=== PATIENT | female | born 1960 | race Caucasian/White ===

== ENCOUNTER 2020-06-09 09:19 | Outpatient (CLI) | payer OTHER, SELFPAY ==
--- NOTE | 2020-06-09 09:15 | XR_ITS ---
WS: [id number] ABDOMEN: SUPINE FILM HISTORY: Stone COMPARISON: 06/07/2018 Normal bowel gas pattern. Right kidney: Several calcifications over the lower pole RIGHT kidney with the largest measuring 5 mm . No interval change. Left kidney: Tiny calcifications lower pole LEFT kidney. XR/XR KUB [id number] IMPRESSION: Bilateral nephrolithiasis. No significant interval change in stone burden.
== END 2020-06-09 09:20 | disposition home or self-care (01) ==
PROVIDERS: Family Provider Internal Medicine; PCP Urology; Visit Provider Nurse Practitioner Family
DX: N20.0 Calculus of kidney (principal)
CPT/HCPCS: 74018; 81001

== ENCOUNTER 2020-10-23 08:45 | Outpatient (CLI) | payer OTHER, SELFPAY ==
--- NOTE | 2020-10-23 08:51 | MM_ITS ---
WS: [id number] Bilateral screening digital mammogram, 10/23/2020 Clinical Data: SCREENING Comparison: 09/12/2019, 08/17/2018, 08/04/2017, 07/30/2016, 07/25/2015, 05/23/2014, 12/31/2011, 11/04/2009. Findings: The breast parenchymal pattern shows fibroglandular tissue No spiculated masses or clustered calcific ations are seen. There are no secondary signs of carcinoma. MM/[place] [id number] Impression: 1. Negative bilateral mammogram unchanged. 2. Recommend annual screening mammograms. BIRADS: 1-Negative FOLLOW UP: 1 Year Follow-up The CAD cloth checker was used.
== END 2020-10-23 08:46 | disposition home or self-care (01) ==
LOC: RADSHAW 08:48
PROVIDERS: Family Provider Internal Medicine; PCP Internal Medicine; Visit Provider Internal Medicine
DX: Z12.31 Encounter for screening mammogram for malignant neoplasm of breast (principal)
CPT/HCPCS: 77067

== ENCOUNTER 2021-02-05 08:01 | Outpatient (CLI) | payer OTHER, SELFPAY ==
--- NOTE | 2021-02-05 08:14 | USCV_ITS ---
Sarita Jovel Age: 60 Gender: F : 1960 Exam Date: 02/05/2021 08:36 Ordering Phys: Natasha David MD Technologist: Eliane Tesfaye [place] [facility] [place]: annual BP: / HR: 81 Rhythm: Sinus Technical Quality: Fair MEASUREMENTS (Male / Female) Normal Values 2D ECHO LV Diastolic Diameter PLAX 4.1 cm 4.2 - 5.9 / 3.9 - 5.3 cm LV Systolic Diameter PLAX 3.0 cm LV Chamber Size 3.6 cm IVS Diastolic Thickness 1.0 cm 0.6 - 1.0 / 0.6 - 0.9 cm IVS Systolic Thickness 1.6 cm LVPW Diastolic Thickness 1.0 cm 0.6 - 1.0 / 0.6 - 0.9 cm LVPW Systolic Thickness 1.1 cm RV Chamber Size 1.5 cm LVOT Diameter 2.0 cm LV Ejection Fraction 2D Teich 54.2 % LV Ejection Fraction MOD 2C 63.5 % LV Ejection Fraction 2C AL 63.7 % LA Diameter 3.0 cm LA Width 2.9 cm LA Height 4.8 cm RA Width 2.8 cm RA Height 4.0 cm Aorta at Sinotubular Diameter 2.3 cm M-MODE LV Diastolic Diameter MM 4.0 cm 4.2 - 5.9 / 3.9 - 5.3 cm LV Systolic Diameter MM 2.6 cm LV Ejection Fraction MM Teich 64.8 % IVS Diastolic Thickness MM 0.4 cm 0.6 - 1.0 / 0.6 - 0.9 cm IVS Systolic Thickness MM 0.8 cm LVPW Diastolic Thickness MM 1.0 cm 0.6 - 1.0 / 0.6 - 0.9 cm LVPW Systolic Thickness MM 1.2 cm RV Diastolic Diameter MM 1.1 cm Aortic Annulus Diameter 2.8 cm LA Ao Ratio MM 1.1 MV E Point Septal Separation 0.7 cm DOPPLER AV Peak Velocity 125.0 cm/s LVOT Peak Velocity 106.0 cm/s AV Area Cont Eq vti 2.5 cm squared AV Area Cont Eq pk 2.7 cm squared MV Area PHT 3.7 cm squared Mitral E to A Ratio 0.8 MV E' Velocity 42.0 cm/s Mitral E to MV E' Ratio 10.2 Mitral E to LV E' Lateral Ratio 10.9 Mitral E to LV E' Septal Ratio 9.7 TR Peak Velocity 191.9 cm/s TR Peak Gradient 14.7 mmHg TR Mean Velocity 157.6 cm/s TR Mean Gradient 10.1 mmHg TR Velocity Time Integral 44.6 cm TV Peak E Velocity 46.0 cm/s Right Atrial Pressure 3.0 mmHg Pulmonary Artery Systolic Pressu 17.7 mmHg PV Peak Velocity 87.0 cm/s RV Acceleration Time 0.1 s RV Ejection Time 0.3 s RV AcT/ET 0.3 FINDINGS Left Ventricle Normal left ventricular size. LV systolic function is normal with EF of 55-60%. No regional wall motion abnormalities. Grade 1 diastolic dysfunction Right Ventricle The right ventricle is normal in size and function. Right Atrium The right atrium is normal in size. Left Atrium The left atrium is normal in size. Mitral Valve Structurally normal mitral valve without significant stenosis or prolapse. There is mild mitral regurgitation. Aortic Valve Structurally normal aortic valve without significant sclerosis or stenosis. There is no aortic regurgitation. Tricuspid Valve Structurally normal tricuspid valve without significant stenosis or regurgitation. Insufficient TR jet to calculate RVSP Pulmonic Valve Structurally normal pulmonic valve without significant stenosis. There is mild pulmonic regurgitation. Pericardium Normal pericardium without effusion. Aorta Normal ascending aorta dimension. CONCLUSIONS LV systolic function is normal with EF of 55-60% Grade 1 diastolic dysfunction Mild mitral regurgitation. Mild pulmonic regurgitation No comparison studies are available Kieran Baig MD (Electronically Signed) Final Date: 05 February 2021 17:40 S
== END 2021-02-05 08:02 | disposition home or self-care (01) ==
LOC: RAD 08:06
PROVIDERS: PCP Internal Medicine; Visit Provider Internal Medicine
DX: Z00.00 Encounter for general adult medical examination without abnormal findings (principal); I34.0 Nonrheumatic mitral (valve) insufficiency; I37.1 Nonrheumatic pulmonary valve insufficiency
CPT/HCPCS: 93306

== ENCOUNTER 2021-02-12 08:54 | Outpatient (CLI) | payer OTHER, SELFPAY ==
--- NOTE | 2021-02-12 08:59 | XR_ITS ---
WS: [id number] DEXA (DUAL ENERGY X-RAY ABSORPTIOMETRY) Bone mineral density was performed using a Plug.dj machine. HISTORY: ASYMPTOMATIC POSTMENOPAUSAL STATUS COMPARISON: None available. Lumbar spine BMD (L1-L4): 1.014 g/cm2 T score: -1.4 Z score: -0.5 Total hip BMD: Left: 0.905 g/cm2. T score: -0.8 Z score: -0.1 Right: 0.867 g/cm2. T score: -1.1 Z score: -0.4 10 year probability of a major osteoporotic fracture is 10%. XR/XR DEXA axial skeleton* [id number] IMPRESSION: OSTEOPENIA based upon the WHO classification for females.
== END 2021-02-12 08:55 | disposition home or self-care (01) ==
LOC: RADWPI 08:55
PROVIDERS: PCP Internal Medicine; Visit Provider Internal Medicine
DX: Z78.0 Asymptomatic menopausal state (principal); M85.88 Other specified disorders of bone density and structure, other site
CPT/HCPCS: 77080

== ENCOUNTER 2021-03-25 06:46 | Outpatient (CLI) | payer OTHER, SELFPAY ==
--- NOTE | 2021-03-25 07:06 | MR_ITS ---
WS: [id number] MRI LUMBAR SPINE NONCONTRAST TECHNIQUE: Sagittal T1, T2 and STIR imaging. Axial T1 and T2 imaging. CLINICAL INFORMATION: DEGENERATIVE DISC DISEASE W RADICULOPATHY LUMBOSACRAL SPINE COMPARISON: MRI 2 016 FINDINGS: Mild lumbar curve. No acute compression. No high-grade central canal stenosis. L1-L2: Normal. L2-L3: No significant disc bulging. Mild facet arthropathy. Spinal canal and foramen are patent. L3-L4: No significant disc bulging. Moderate facet arthropathy. Spinal canal and foramen are patent. L4-L5: Minimal annular bulging. Moderate facet arthropathy. Spinal canal and foramen are patent. L5-S1: No significant disc bulging. Mild facet arthropathy. Spinal canal foramen are patent. Visualized pelvic bony structures: Normal. Paravertebral soft tissues: Normal. MR/MR lumbar spine wo con* [id number] IMPRESSION: 1. Mild lumbar curve. No acute compression. No high-grade central canal stenos is. 2. No significant foraminal narrowing. 3. Moderate facet arthropathy L3-L4 and L4-L5. 4. No significant interval changes since 2016.
== END 2021-03-25 06:47 | disposition home or self-care (01) ==
LOC: RADSHAW 06:52
PROVIDERS: PCP Internal Medicine; Visit Provider Internal Medicine
DX: M51.17 Intervertebral disc disorders with radiculopathy, lumbosacral region (principal); M47.816 Spondylosis without myelopathy or radiculopathy, lumbar region
CPT/HCPCS: 72148

== ENCOUNTER 2022-01-14 14:47 | Outpatient (CLI) | payer OTHER, SELFPAY ==
--- NOTE | 2022-01-14 14:52 | MM_ITS ---
WS: [id number] BILATERAL 3D TOMOSYNTHESIS DIGITAL SCREENING MAMMOGRAPHY WITH CAD CLINICAL INFORMATION: SCREENING HISTORY: Screening mammogram. No current complaints. COMPARISON: October 23, 2020 TECHNIQUE: Bilateral CC and MLO views. FINDINGS: Scattered fibroglandular densities bilaterally. Punctate and lucent centered calcifications. No suspi cious focal mass, asymmetry, calcifications, or architectural distortion. No evidence of malignancy. MM/[place] [id number] IMPRESSION: BI-RADS: 2-Benign FOLLOW UP: 1 Year Follow-up Recommend return to annual screening mammography.
== END 2022-01-14 14:48 | disposition home or self-care (01) ==
LOC: RADSHAW 14:48
PROVIDERS: PCP Internal Medicine; Visit Provider Internal Medicine
DX: Z12.31 Encounter for screening mammogram for malignant neoplasm of breast (principal)
CPT/HCPCS: 77063; 77067

== ENCOUNTER 2022-06-10 08:36 | Outpatient (CLI) | payer OTHER, SELFPAY ==
--- NOTE | 2022-06-10 08:00 | XR_ITS ---
WS: [id number] KUB, AP view, 06/10/2022 Clinical Data: CALCIUM UROLITHIASIS Comparison: KUB, 06/09/2020. Findings: No abnormal intraabdominal masses are seen. There is no dilatated small bowel or evidence of obstruct ion. There are calcifications overlying both kidneys. Fecal material and bowel gas obscures detail over mike th kidneys. The bladder is full. XR/XR KUB [id number] Impression: No change in bilateral renal calcifications.
== END 2022-06-10 08:37 | disposition home or self-care (01) ==
LOC: RAD 08:37
PROVIDERS: PCP Internal Medicine; Visit Provider Urology
DX: N20.9 Urinary calculus, unspecified (principal)
CPT/HCPCS: 74018

== ENCOUNTER 2022-12-16 11:34 | Outpatient (CLI) | payer OTHER, SELFPAY ==
--- NOTE | 2022-12-16 12:10 | CT_ITS ---
WS: [id number] CT ABDOMEN PELVIS TECHNIQUE: Contrast-enhanced CT of the abdomen and pelvis with coronal and sagittal reformatted image s. CLINICAL INFORMATION: RLQ ABDOMINAL PAIN/DIARRHEA/EVAL APPENDICITIS COMPARISON: CT 2014 DLP: 564.[address] scans at [facility] use at least one of these dose optimization techniques: automated e xposure control; mA and/or kV adjustment per patient size (includes targeted exams where dose is matc hed to clinical indication); or iterative reconstruction. FINDINGS: Normal appendix in the RIGHT lower quadrant. No evidence of acute appendicitis. Retroflexed uterus. H eterogeneous uterine enhancement with a few small enhancing lesions. These may represent small fibroi ds versus adenomyosis. This can be further evaluated with pelvic ultrasound. Small amount of free flu id in the pelvis. Sigmoid colon is decompressed. A few small sigmoid diverticuli. No evidence of acute diverticulitis. Air-fluid levels in normal caliber transverse colon. Fluid distended small bowel with air-fluid level s and prominent mucosal thickening and enhancement suspicious for small bowel enteritis. This involve s the proximal and distal small bowel loops in the midabdomen extending into the RIGHT lower quadrant and pelvis. Terminal ileum is decompressed. Small amount of enhancement involving the terminal ileum and cecum. Somewhat prominent enhancement and thickening involving the RIGHT ascending colon and hep atic flexure. Lung bases are well aerated. Diffuse fatty infiltration liver. Normal portal vein and splenic vein. M ild hepatomegaly. Normal spleen. Normal pancreatic parenchymal enhancement. Normal portal vein and sp lenic vein. Normal gallbladder. Tiny esophageal hiatal hernia. Normal stomach and proximal duodenum. Celiac and SMA are patent. Normal caliber abdominal aorta. Small cyst undersurface RIGHT hepatic lobe measuring 16 mm. Normal renal parenchymal enhancement. No hydronephrosis. Incidental small LEFT renal cysts. No hydronephrosis in either kidney. Tiny fat-containing umbilical hernia. CT/CT abdomen pelvis w con* [id number] IMPRESSION: 1. Normal appendix in the RIGHT lower quadrant. No evidence of acute appendici tis. 2. Fluid distended small bowel loops with prominent mucosal thickening and enh ancement. Also, wall thickening and enhancement RIGHT colon and hepatic flexure suspicious for enterocolitis. Findings likely infectious or inflammatory. Brandt mmend correlation with history of inflammatory bowel disease. 3. Heterogeneously enhancing retro flexed uterus with small foci of enhancemen t may represent small fibroids or adenomyosis. This can be further evaluated wi th ultrasound. 4. Small amount of free fluid in the pelvis. 5. Diffuse fatty infiltration liver. 6. No other acute findings.
[2022-12-16 12:19] LABS: Basophils # 0.1 10^3/uL (0.0-0.1); Basophils % 0.4 %; Eosinophils % 0.1 %; Hematocrit 49.2 % (37.0-47.0); Hemoglobin 16.1 g/dL (11.5-15.3); Lymphocytes # 0.9 10^3/uL (0.8-4.8); Lymphocytes % 8.3 %; Mean Corpuscular HGB Conc 32.7 g/dL (30.0-36.0); Mean Corpuscular Volume 88.5 fl (81-99); Mean Platelet Volume 10.3 fL (7.4-10.4); Monocytes # 0.7 10^3/uL (0.2-0.9); Monocytes % 6.4 %; Neutrophils # 9.41 10^3/uL (1.8-7.7); Neutrophils % 84.4 %; Nucleated Red Blood Cells % 0 %; Platelet Count 209 10^3/cmm (130-400); Red Blood Count 5.56 10^6/uL (4.1-5.3); Red Cell Distribution Width 13.7 % (12.1-15.1); White Blood Count 11.2 10^3/uL (4.0-10.0)
[2022-12-16] MEDS: iohexol 350 mg/mL 500 mL Btl (per mL) IV (14:20)
== END 2022-12-16 11:35 | disposition home or self-care (01) ==
PROVIDERS: PCP Internal Medicine; Visit Provider Internal Medicine
DX: R10.31 Right lower quadrant pain (principal); R19.7 Diarrhea, unspecified; K76.0 Fatty (change of) liver, not elsewhere classified
CPT/HCPCS: 36415; 74177; 85025; 87506; Q9967

== ENCOUNTER 2023-01-24 09:42 | Outpatient (CLI) | payer OTHER, SELFPAY ==
--- NOTE | 2023-01-24 09:50 | MM_ITS ---
WS: [id number] Bilateral screening 3D tomosynthesis digital mammogram, 01/24/2023 Clinical Data: SCREENING Comparison: 01/14/2022, 10/23/2020, 09/12/2019, 08/17/2018 08/04/2017, 07/30/2016, 07/25/2015, 05/23/2014, 12/31/2011, 11/04/2009. Findings: The breast parenchymal pattern shows fibroglandular tissue. No spiculated masses or clustered calcifi cations are seen. There are no secondary signs of carcinoma. There is a mole marker on the right [address]. Impression: 1. Negative bilateral mammogram unchanged. 2. Recommend annual screening mammograms. MM/[place] [id number] BIRADS: 1-Negative FOLLOW UP: 1 Year Follow-up The CAD food checkers and cashiers supervisor was used.
== END 2023-01-24 09:43 | disposition home or self-care (01) ==
LOC: RAD 09:46
PROVIDERS: PCP Internal Medicine; Visit Provider Internal Medicine
DX: Z12.31 Encounter for screening mammogram for malignant neoplasm of breast (principal)
CPT/HCPCS: 77063; 77067

== ENCOUNTER 2023-11-25 06:01 | Outpatient (CLI) | payer OTHER, SELFPAY ==
--- NOTE | 2023-11-25 | US_ITS ---
WS: [id number] RIGHT UPPER QUADRANT ULTRASOUND HISTORY: ELEVATED LFT'S COMPARISON: None available. Liver: 14.6 cm in length. Normal size liver. Variable echotexture throughout the liver. Simple cyst R IGHT lobe 1.6 x 1.7 x 1.3 cm. Portal Vein: Normal hepatopetal flow with monophasic waveform. Gallbladder: Normally distended gallbladder with no stones or wall thickening. CBD: 0.2 cm Pancreas: Partially obscured. Only a small portion of the body is identified and normal. Right kidney: 11.5 cm in length. Normal size and echogenicity. No hydronephrosis or mass. Aorta and IVC: Unremarkable abdominal aorta and IVC. No ascites. IMPRESSION: 1. Normal gallbladder. 2. Heterogeneous liver which is normal size. Due to the distribution in the geographic appearance of the heterogeneity this is probably all due to areas of hepatic steatosis with sparing. 3. No bile duct dilatation.
== END 2023-11-25 06:02 | disposition home or self-care (01) ==
LOC: RAD 06:01
PROVIDERS: PCP Internal Medicine; Visit Provider Internal Medicine
DX: R74.8 Abnormal levels of other serum enzymes (principal); K76.9 Liver disease, unspecified
CPT/HCPCS: 76705

== ENCOUNTER 2024-01-26 08:51 | Outpatient (CLI) | payer OTHER, SELFPAY ==
--- NOTE | 2024-01-26 08:56 | MM_ITS ---
WS: [id number] Bilateral screening 3D tomosynthesis digital mammogram, 01/26/2024 Clinical Data: SCREENING Comparison: 01/24/2023, 01/14/2022, 12/24/2019, 09/12/2019, 08/17/2018, 08/04/2017, 07/30/2016, 07/25/2015, 05/23/2014, 12/31/2011, 11/04/2009. Findings: The breast parenchymal pattern shows fibroglandular tissue no spiculated masses or clustered calcific ations are seen. There are no secondary signs of carcinoma. There is a mole marker on the right breas t. Impression: 1. Negative bilateral mammogram unchanged. 2. Recommend annual screening mammograms. MM/[place] [id number] BIRADS: 1-Negative FOLLOW UP: 1 Year Follow-up The CAD inventory checker was used.
== END 2024-01-26 08:52 | disposition home or self-care (01) ==
LOC: RAD 08:52
PROVIDERS: PCP Internal Medicine; Visit Provider Internal Medicine
DX: Z12.31 Encounter for screening mammogram for malignant neoplasm of breast (principal)
CPT/HCPCS: 77063; 77067

== ENCOUNTER 2024-04-23 13:23 | Outpatient (CLI) | payer OTHER, SELFPAY ==
--- NOTE | 2024-04-23 13:29 | XR_ITS ---
WS: [email or web address] SCREENING DEXA SCAN [employer] CLINICAL INFORMATION: ASYMPTOMATIC POSTMENOPAUSAL COMPARISON: 2020 FINDINGS: The L1-L4 bone mineral density measures 0.992 g/cm2. This corresponds to a T score score of -1.6 and Z score of -0.4. Left femoral neck bone mineral density measures 0.872 g/cm2. This corresponds to a T score of -1.1 an d Z score of -0.2. Right femoral neck bone mineral density measures 0.815 g/cm2. This corresponds to a T score -1.5of an d Z score of -0.6. Mean femoral neck bone mineral density measures 0.844 g/cm2. This corresponds to a T score of -1.3 an d Z score of -0.4. XR/XR DEXA axial skeleton* [id number] IMPRESSION: Osteopenia lumbar spine. Osteopenia femoral necks. Patient's FRAX calculated 10 year probability for major osteoporotic fracture i s 10.6% and osteoporotic hip fracture is 1.6%. Bone mineral density lumbar spine decreased -2.2% Bone mineral density femoral necks decreased -4.7%
== END 2024-04-23 13:24 | disposition home or self-care (01) ==
LOC: RAD 13:23
PROVIDERS: PCP Internal Medicine; Visit Provider Internal Medicine
DX: Z78.0 Asymptomatic menopausal state (principal); M85.89 Other specified disorders of bone density and structure, multiple sites
CPT/HCPCS: 77080

== ENCOUNTER 2025-02-01 08:23 | Outpatient (CLI) | payer OTHER, SELFPAY ==
--- NOTE | 2025-02-01 08:31 | MM_ITS ---
WS: [id number] BILATERAL SCREENING DIGITAL TOMOSYNTHESIS MAMMOGRAM WITH CAD HISTORY: SCREENING COMPARISON: 01/26/2024, 01/24/2023 Bilateral CC and MLO views with tomosynthesis and synthetic mammography submitted. Computer aided detection analyzed. Breast composition: There are scattered areas of fibroglandular density. No suspicious masses, microcalcifications or architectural distortion. Benign calcifications in each breast. MM/MM scr BI tomosynthesis [id number] IMPRESSION: BI-RADS: 2 - Benign. FOLLOW UP: 1 Year Follow-up
== END 2025-02-01 08:24 | disposition home or self-care (01) ==
PROVIDERS: PCP Internal Medicine; Visit Provider Internal Medicine
DX: Z12.31 Encounter for screening mammogram for malignant neoplasm of breast (principal); R92.323 Mammographic fibroglandular density, bilateral breasts; R92.1 Mammographic calcification found on diagnostic imaging of breast
CPT/HCPCS: 77063; 77067

== ENCOUNTER → 2025-07-29 15:41 | Outpatient (BNVA) | payer MEDICARE, OTHER, SELFPAY | PROVIDERS: PCP Internal Medicine; Visit Provider Nurse Practitioner Family | DX: L57.8 Other skin changes due to chronic exposure to nonionizing radiation (principal); L81.4 Other melanin hyperpigmentation; D22.5 Melanocytic nevi of trunk; L82.1 Other seborrheic keratosis; L82.0 Inflamed seborrheic keratosis; R20.8 Other disturbances of skin sensation; L29.89 Other pruritus; Z78.9 Other specified health status; L53.8 Other specified erythematous conditions; D48.5 Neoplasm of uncertain behavior of skin | CPT/HCPCS: 11102; 17110; 99213 ==